=== PATIENT | male | born 1980 | race American Indian/Alaskan Native ===

== ENCOUNTER 2025-06-09 09:01 | Emergency (ER) | payer MEDICAID, SELFPAY ==
[2025-06-09 09:14] VITALS: BP 138/89; PULSE 68; RESP 18; TEMP 36.6; O2SAT 99; BMI 34.5
[2025-06-09] MEDS: KETOROLAC INJ 30 MG/ML VIAL IM (09:24)
--- NOTE | 2025-06-09 09:29 | PD.EDBACK ---
ED Back Injury Pain RME/HPI General Chief Complaint: Back Pain/Injury Stated Complaint: LOWER BACK PAIN Time Seen by Provider: 06/09/25 09:19 Arrival date/time: 06/09/25 09:01 45-year-old male with previous injury to back approximately 3 years ago presents the emergency department today stating that approximately 3 days ago he was lifting groceries out of the car and developed pain in his lower back. Patient reports no fever nausea vomiting no saddle esthesia no loss of bowel or bladder patient walks with steady gait Limitations: no limitations Related Data Previous Rx's ?Medication ?Instructions ?Recorded ciprofloxacin HCl 500 mg tablet 500 mg PO BID #14 tabs 02/03/22 (Cipro) phenazopyridine 200 mg tablet 200 mg PO TID 6 doses #6 tabs 02/03/22 (Pyridium) ibuprofen 800 mg tablet 800 mg PO TID PRN pain #30 tabs 08/03/22 cyclobenzaprine 10 mg tablet 10 mg PO TID PRN muscle spasm 10 06/09/25 days #30 tab-caps hydrocodone 5 mg-acetaminophen 325 1 tab PO BID PRN pain #10 tabs 06/09/25 mg tablet ibuprofen 800 mg tablet 800 mg PO TID PRN pain #30 tabs 06/09/25 Allergies Allergy/AdvReac Type Severity Reaction Status Date / Time gluten Allergy Swelling Verified 02/03/22 13:29 of Lip/Tongue/Throat iodine Allergy Rash Verified 02/03/22 13:29 Review of Systems Review of Systems Systems Reviewed: All systems reviewed, normal except as documented Constitutional Constitutional: Reports system reviewed and no additional complaints, except as documented, Denies fever(s) and Denies headache(s) Eyes Eyes: Reports system reviewed and no additional complaints, except as documented and Denies blurry vision ENT Ears, Nose, Mouth, and Throat: Reports system reviewed and no additional complaints, except as documented, Denies headache(s), Denies nasal congestion and Denies nasal discharge Cardiovascular Cardiovascular: Reports system reviewed and no additional complaints, except as documented, Denies chest pain and Denies dyspnea Respiratory Respiratory: Reports system reviewed and no additional complaints, except as documented, Denies chest congestion, Denies cough and Denies dyspnea Gastrointestinal Gastrointestinal: Reports system reviewed and no additional complaints, except as documented and Denies abdominal pain Musculoskeletal Musculoskeletal: Reports system reviewed and no additional complaints, except as documented, Denies abnormal gait, Reports back pain, Denies numbness, Reports stiffness and Denies tingling Integumentary/Breasts Skin/Breast: Reports system reviewed and no additional complaints, except as documented and Denies rash Neurologic Neurologic: Reports system reviewed and no additional complaints, except as documented, Reports as per HPI, Denies abnormal gait, Denies headache(s), Denies numbness and Denies tingling Past Medical History Social History SMOKING STATUS: Current every day smoker ED Exam General Limitations: Present no limitations General appearance: Present alert and in no apparent distress Head Head exam: Present atraumatic, normocephalic and normal inspection Eye Eye exam: Present normal appearance, PERRL and EOMI; Absent conjunctival injection ENT ENT exam: Present normal exam, normal oropharynx and mucous membranes moist Neck Neck exam: Present normal inspection, full ROM and trachea midline Chest Chest inspection: Present normal inspection and symmetric chest wall rise Respiratory Respiratory exam: Present normal lung sounds bilaterally; Absent respiratory distress Cardiovascular Cardiovascular exam: Present regular rate, normal rhythm and normal heart sounds Abdominal Exam Abdominal exam: Present soft and normal bowel sounds; Absent distention, tenderness, guarding, rebound or rigidity Extremities Exam Extremities exam: Present normal inspection and full ROM Back Exam Back exam: Present normal inspection, full ROM, tenderness, muscle spasm and paraspinal tenderness; Absent CVA tenderness (R) or CVA tenderness (L) Neurological Exam Neurological exam: Present alert, oriented X3 and CN II-XII intact Psychiatric Psychiatric exam: Present normal affect and normal mood Skin Skin exam: Present warm, dry, intact and normal color Course Quality Measures none Orders Category Date Time Status Ketorolac Inj [Toradol Inj] Med 06/09/25 09:20 Discontinued 30 mg IM X1 ONE Vital Signs Vital signs: Vital Signs Temperature 98 F 06/09/25 09:14 Pulse Rate 68 06/09/25 09:14 Respiratory Rate 18 06/09/25 09:14 Blood Pressure 138/89 H 06/09/25 09:14 Pulse Oximetry (%) 99 06/09/25 09:14 Oxygen Delivery Method Room Air 06/09/25 09:14 O2 saturation 99% on room air within normal limit Back Pain / Injury MDM Narrative MDM Narrative:: 45-year-old male with previous injury to back approximately 3 years ago presents the emergency department today stating that approximately 3 days ago he was lifting groceries out of the car and developed pain in his lower back. Patient reports no fever nausea vomiting no saddle esthesia no loss of bowel or bladder patient walks with steady gait On exam patient well-appearing patient does not appear ill or toxic in no acute distress Symptoms consistent with muscle spasm as patient has had no direct trauma do not believe imaging is indicated at this time Explained to patient if symptoms persist or worsen he may need some imaging of his lower back and further evaluation At this time patient given pain medication discharged home with pain meds Patient data External records reviewed:: [facility] previous records Clinical information provided by:: patient Social determinants that could affect healthcare access:: none Patient has the following chronic illnesses:: See history How is presenting disease/condition affected by chronic disease/condition?: uneffected by Evaluation data The following diagnostics were reviewed and interpreted by me:: other (specify) (N/A) Lab and/or radiology exams considered but not ordered:: N/A Interpretation Summary: N/A Medications / Prescriptions Medications or Prescriptions considered but not ordered:: Ordered Medication administrations:: Medication Administration History Discontinued Medications Ketorolac Tromethamine (Ketorolac Inj 30 Mg/Ml Vial) 30 mg IM X1 ONE Stop: 06/09/25 09:21 Last Admin: 06/09/25 09:24 Dose: 30 mg Documented By: Ordered Consultations Consultation(s) initiated? (list below): No Diagnosis Differential diagnosis back pain/injury: lumbar radiculopathy, sciatica and strain of lumbar region Most likely diagnosis given after review of the tests above:: Back pain Admission Indicated Admission indicated?: not indicated Admission Request Was there a request for admission?: No Disposition Plan Disposition Plan: Discharge Discharge Attestation Discharge Attestation: The patient and all family members were given an opportunity to ask questions and understood the discharge instructions. Discharge instructions specifically effects, indications for sooner follow up or return to the emergency department, and the expected course of current diagnosis. Patient condition: Stable Discharge Plan Plan Patient Disposition: HOME (Self Care) Discharge Disposition comment: Stable Prescriptions/Referrals Prescriptions/Med Rec: New cyclobenzaprine 10 mg tablet 10 mg PO TID PRN (Reason: muscle spasm) 10 Days Qty: 30 0RF ibuprofen 800 mg tablet 800 mg PO TID PRN (Reason: pain) Qty: 30 0RF hydrocodone-acetaminophen 5-325 mg tablet 1 tab PO BID MDD 10 PRN (Reason: pain) Qty: 10 0RF No Action ciprofloxacin HCl [Cipro] 500 mg tablet 500 mg PO BID Qty: 14 0RF phenazopyridine [Pyridium] 200 mg tablet 200 mg PO TID MDD 3 Qty: 6 0RF ibuprofen 800 mg tablet 800 mg PO TID PRN (Reason: pain) Qty: 30 0RF Problem List Clinical Impression: Strain of lumbar region Patient/Caregiver Discharge Instructions Education Materials: ED Back Sprain/Strain Additional Instructions: Please follow up with your primary care doctor in the next 24-48hrs for any worsening symptoms return here immediately Print Language: Stateless Stand Alone Forms: Araseli Award Info., Patient Portal Info Letter PA/HEAD OF STRATEGY Supervising Physician PA/HEAD OF STRATEGY Supervising Physician: Dr. [email or web address]
== END 2025-06-09 09:30 | disposition home or self-care (01) ==
LOC: SERX 09:34
PROVIDERS: Emergency Provider Nurse Practitioner Primary Care; PCP Physician Assistant
DX: S39.012A Strain of muscle, fascia and tendon of lower back, initial encounter (principal); X50.9XXA Other and unspecified overexertion or strenuous movements or postures, initial encounter
CPT/HCPCS: 96372; 99283; J1885